=== PATIENT | female | born 1960 | race Caucasian/White ===

== ENCOUNTER 2021-01-27 12:38 | Emergency (ER) | payer BC ==
[2021-01-27] MEDS ORDERED: Sodium Chloride 0.9% 10 ML Syringe FLUSH PRN (14:00)
--- NOTE | 2021-01-27 14:52 | CT ---
Head CT Technique: Multiple axial sections through the brain were obtained. Intravenous contrast was not utilized. Reconstructed coronal and sagittal images were obtained. Comparison: No prior intracranial imaging is available. Findings: There is an old low density noted within the left upper parietal region with evidence of previous craniotomy. Some calcifications are seen within this area. Ventricles along with basal cisterns and sulci over the convexities are mildly prominent. No other abnormal parenchymal densities are seen. No evidence of intracranial hemorrhage. No midline shift or mass-effect is appreciated. Bone window settings were reviewed. Visualized mastoid and paranasal sinuses show nothing acute. Minimal atherosclerotic change within the carotid siphon is seen. No acute calvarial abnormality is appreciated. Impression: 1. Old craniotomy within the upper left side with underlying low density within the adjacent brain showing calcification. These findings are most likely old. 2. Mild generalized atrophy. 3. Nothing acute is appreciated on noncontrast head CT exam. Diagnostic code #2
--- NOTE | 2021-01-27 14:58 | EDM.PDOC ---
ED HPI GENERAL MEDICAL PROBLEM - General Chief Complaint: General Stated Complaint: DIZZINESS Time Seen by Provider: 01/27/21 12:58 Source of Information: Reports: Patient History Limitations: Reports: No Limitations - History of Present Illness INITIAL COMMENTS - FREE TEXT/NARRATIVE: 60-year-old female presents to the emergency department today with complaints of a 3-day history of new onset dizziness, nausea, intermittent diaphoresis, and intermittent headache. Patient states this started about 3 days ago. She states that the dizziness comes and goes when she will be sitting in a chair or laying flat in the bed. Of note the patient does have a history of brain tumor which was removed in 1988. She states that when the dizziness hits she becomes nauseated and sweaty. She also states that when this occurs she gets chest pressure and midsternal burning. She denies any recent fever, chills, cough or shortness of breath. She denies any history of Covid. She is tachycardic in the 1 teens to 120s however she states that she is always slightly tachycardic in the low 100s. - Related Data Allergies Allergy/AdvReac Type Severity Reaction Status Date / Time phenytoin sodium Allergy Rash Verified 01/27/21 12:53 [From Dilantin] phenytoin sodium extended Allergy Rash Verified 01/27/21 12:53 [From Dilantin] Home Meds: Home Meds Meclizine [Antivert] 12.5 mg PO BID #20 tab 01/27/21 [Rx] predniSONE [Prednisone] 20 mg PO DAILY #5 tablet 01/27/21 [Rx] Past Medical History HEENT History: Reports: Impaired Vision Neurological History: Reports: Seizure, Other (See Below) Other Neuro History: brain tumor removed in 1988 Social & Family History - Tobacco Use Tobacco Use Status *Q: Never Tobacco User - Alcohol Use Days Per Week of Alcohol Use: 7 Number of Drinks Per Day: 2 Total Drinks Per Week: 14 - Recreational Drug Use Recreational Drug Use: No ED ROS GENERAL - Review of Systems Review Of Systems: See Below Constitutional: Reports: Diaphoresis (With dizzy spells). Denies: Fever, Chills HEENT: Reports: No Symptoms Respiratory: Reports: No Symptoms. Denies: Shortness of Breath, Cough Cardiovascular: Reports: Chest Pain (Burning midsternal chest pain). Denies: Dyspnea on Exertion, Lightheadedness, Palpitations, Syncope Endocrine: Reports: No Symptoms GI/Abdominal: Reports: Nausea. Denies: Abdominal Pain, Constipation, Diarrhea, Vomiting : Reports: No Symptoms Musculoskeletal: Reports: No Symptoms Skin: Reports: No Symptoms Neurological: Reports: Dizziness, Headache (Occasional intermittent). Denies: Seizure, Weakness Psychiatric: Reports: No Symptoms Hematologic/Lymphatic: Reports: No Symptoms Immunologic: Reports: No Symptoms ED EXAM, GENERAL - Physical Exam Exam: See Below Exam Limited By: No Limitations General Appearance: Alert, WD/WN, No Apparent Distress Eye Exam: Bilateral Eye: PERRL Ears: Normal External Exam, Hearing Grossly Normal Nose: Normal Inspection, Normal Mucosa Throat/Mouth: Normal Inspection, Normal Lips, Normal Voice, No Airway Compromise Head: Atraumatic, Normocephalic Neck: Normal Inspection, Supple, Non-Tender, Full Range of Motion Respiratory/Chest: No Respiratory Distress, Lungs Clear, Normal Breath Sounds, No Accessory Muscle Use, Chest Non-Tender Cardiovascular: Normal Peripheral Pulses, No Edema, No Murmur, Tachycardia Peripheral Pulses: 2+: Radial (L), Radial (R) GI/Abdominal: Normal Bowel Sounds, Soft, Non-Tender, No Distention (Female) Exam: Normal External Exam Rectal (Female) Exam: Deferred Back Exam: Normal Inspection, Full Range of Motion Extremities: Normal Inspection, Normal Range of Motion, Non-Tender, No Pedal Edema, Normal Capillary Refill Neurological: Alert, Oriented, Normal Cognition, Normal Reflexes Psychiatric: Normal Affect, Normal Mood Skin Exam: Warm, Dry, Intact, Normal Color, No Rash Lymphatic: No Adenopathy #1 Interpretation EKG Date: 01/27/21 Time: 13:31 Rhythm: NSR Rate (Beats/Min): 109 QRS: LBBB ST-T: Normal QT: Normal Comparison: NA - No Prior EKG EKG Interpretation Comments: Per Dr. Vasquez interpretation: Sinus tachycardia at 109, left bundle branch block, Q waves in the inferior leads, abnormal EKG. Course - Vital Signs Text/Narrative:: The 60-year-old female with complaints of 3-day history of dizziness, nausea and diaphoresis. She also notes that she has occasional chest pressure/burning midsternally. Denies any history of fever, chills or cough. She does have a history of brain tumor which was removed in 1988. She states that after that she did have 1 seizure and was on seizure medication however weaned herself off of those about a year later. She denies any syncopal episodes or cough or shortness of breath. She states that intermittently she will feel dizzy while sitting in a chair or laying in bed however not when she is up ambulating or standing from sitting. She states when this occurs she feels nauseated and diaphoretic. She does not have a history of vertigo however she states that her mom had a history of that. She has no significant medical history other than the brain tumor and she does not take any prescription medications. I have ordered a head CT, chest x-ray and labs on this patient. I have also ordered for the patient to have a saline lock placed. Last Recorded V/S: Last Vital Signs Temp 96.2 F L 01/27/21 12:47 Pulse 120 H 01/27/21 12:47 Resp 18 01/27/21 12:47 BP 168/108 H 01/27/21 12:47 Pulse Ox 97 01/27/21 12:47 - Orders/Labs/Meds Orders: Active Orders 24 hr Category Date Time Status EKG 12 Lead [EKG Documentation Completion] [RC] DAILY Care 01/27/21 13:27 Active CORONAVIRUS COVID-19 PCR PHL Stat Lab 01/27/21 15:02 Ordered Sodium Chloride 0.9% [Saline Flush] Med 01/27/21 14:00 Active 10 ml FLUSH ASDIRECTED PRN Saline Lock Insert [OM.PC] Stat Oth 01/27/21 14:00 Ordered Medication Orders Sodium Chloride (Saline Flush) 10 ml FLUSH ASDIRECTED PRN PRN Reason: Keep Vein Open Last Admin: 01/27/21 14:04 Dose: 10 ml Documented by: KARISSA Labs: Laboratory Tests 01/27/21 01/27/21 01/27/21 Range/Units 12:55 12:55 12:55 WBC 7.07 (3.98-10.04) K/mm3 RBC 4.64 (3.98-5.22) M/mm3 Hgb 14.7 D (11.2-15.7) gm/dl Hct 45.3 H (34.1-44.9) % MCV 97.6 H D (79.4-94.8) fl MCH 31.7 (25.6-32.2) pg MCHC 32.5 (32.2-35.5) g/dl RDW Std Deviation 43.8 (36.4-46.3) fL Plt Count 336 (182-369) K/mm3 MPV 9.5 (9.4-12.3) fl Neut % (Auto) 56.2 (34.0-71.1) % Lymph % (Auto) 32.2 (19.3-51.7) % Ada % (Auto) 7.4 (4.7-12.5) % Eos % (Auto) 3.7 (0.7-5.8) Baso % (Auto) 0.4 (0.1-1.2) % Neut # (Auto) 3.97 (1.56-6.13) K/mm3 Lymph # (Auto) 2.28 (1.18-3.74) K/mm3 Ada # (Auto) 0.52 H (0.24-0.36) K/mm3 Eos # (Auto) 0.26 (0.04-0.36) K/mm3 Baso # (Auto) 0.03 (0.01-0.08) K/mm3 Sodium 143 (136-145) mEq/L Potassium 3.8 (3.5-5.1) mEq/L Chloride 103 (98-107) mEq/L Carbon Dioxide 27 (21-32) mEq/L Anion Gap 16.8 H (5-15) BUN 20 H (7-18) mg/dL Creatinine 1.0 (0.55-1.02) mg/dL Est Cr Clr Drug Dosing 52.95 mL/min Estimated GFR (MDRD) 57 (>60) mL/min BUN/Creatinine Ratio 20.0 H (14-18) Glucose 147 H (74-106) mg/dL Calcium 10.0 (8.5-10.1) mg/dL Magnesium 1.9 (1.8-2.4) mg/dl Total Bilirubin 0.6 (0.2-1.0) mg/dL AST 27 (15-37) U/L ALT 49 (14-59) U/L Alkaline Phosphatase 83 (46-116) U/L Troponin I < 0.017 (0.00-0.056) ng/mL Total Protein 8.6 H (6.4-8.2) g/dl Albumin 4.5 (3.4-5.0) g/dl Globulin 4.1 gm/dL Albumin/Globulin Ratio 1.1 (1-2) TSH 3rd Generation 2.678 (0.358-3.74) uIU/mL Urine Color (Yellow) Urine Appearance (Clear) Urine pH (5.0-8.0) Ur Specific [place] (1.005-1.030) Urine Protein (Negative) Urine Glucose (UA) (Negative) Urine Ketones (Negative) Urine Occult Blood (Negative) Urine Nitrite (Negative) Urine Bilirubin (Negative) Urine Urobilinogen (0.2-1.0) Ur Leukocyte Esterase (Negative) Urine RBC (0-5) /hpf Urine WBC (0-5) /hpf Ur Squamous Epith Cells (0-5) /hpf Urine Bacteria (FEW) /hpf Urine Mucus (FEW) /hpf 01/27/21 Range/Units 13:20 WBC (3.98-10.04) K/mm3 RBC (3.98-5.22) M/mm3 Hgb (11.2-15.7) gm/dl Hct (34.1-44.9) % MCV (79.4-94.8) fl MCH (25.6-32.2) pg MCHC (32.2-35.5) g/dl RDW Std Deviation (36.4-46.3) fL Plt Count (182-369) K/mm3 MPV (9.4-12.3) fl Neut % (Auto) (34.0-71.1) % Lymph % (Auto) (19.3-51.7) % Ada % (Auto) (4.7-12.5) % Eos % (Auto) (0.7-5.8) Baso % (Auto) (0.1-1.2) % Neut # (Auto) (1.56-6.13) K/mm3 Lymph # (Auto) (1.18-3.74) K/mm3 Ada # (Auto) (0.24-0.36) K/mm3 Eos # (Auto) (0.04-0.36) K/mm3 Baso # (Auto) (0.01-0.08) K/mm3 Sodium (136-145) mEq/L Potassium (3.5-5.1) mEq/L Chloride (98-107) mEq/L Carbon Dioxide (21-32) mEq/L Anion Gap (5-15) BUN (7-18) mg/dL Creatinine (0.55-1.02) mg/dL Est Cr Clr Drug Dosing mL/min Estimated GFR (MDRD) (>60) mL/min BUN/Creatinine Ratio (14-18) Glucose (74-106) mg/dL Calcium (8.5-10.1) mg/dL Magnesium (1.8-2.4) mg/dl Total Bilirubin (0.2-1.0) mg/dL AST (15-37) U/L ALT (14-59) U/L Alkaline Phosphatase (46-116) U/L Troponin I (0.00-0.056) ng/mL Total Protein (6.4-8.2) g/dl Albumin (3.4-5.0) g/dl Globulin gm/dL Albumin/Globulin Ratio (1-2) TSH 3rd Generation (0.358-3.74) uIU/mL Urine Color Yellow (Yellow) Urine Appearance Clear (Clear) Urine pH 5.5 (5.0-8.0) Ur Specific [place] > or = 1.030 (1.005-1.030) Urine Protein Negative (Negative) Urine Glucose (UA) Negative (Negative) Urine Ketones Negative (Negative) Urine Occult Blood Trace-intact H (Negative) Urine Nitrite Negative (Negative) Urine Bilirubin Negative (Negative) Urine Urobilinogen 0.2 (0.2-1.0) Ur Leukocyte Esterase Negative (Negative) Urine RBC 5-10 H (0-5) /hpf Urine WBC 0-5 (0-5) /hpf Ur Squamous Epith Cells 0-5 (0-5) /hpf Urine Bacteria Few (FEW) /hpf Urine Mucus Few (FEW) /hpf Meds: Medications Generic Name Dose Route Start Last Admin Trade Name Freq PRN Reason Stop Dose Admin Sodium Chloride 10 ml 01/27/21 14:00 01/27/21 14:04 Saline Flush FLUSH 10 ml ASDIRECTED PRN Administration Keep Vein Open - Re-Assessments/Exams Free Text/Narrative Re-Assessment/Exam: 01/27/21 14:58 Labs reveal a WBC of 7.07, hemoglobin 14.7, hematocrit 45.3, chemistry reveals sodium of 143, potassium 3.8, carbon dioxide 27, anion gap 16.8, BUN 20, creatinine 1.0, glucose 147, troponin less than 0.017, TSH 2.678 Urinalysis reveals trace of intact occult blood, urine RBCs 5-10 01/27/21 15:03 I have ordered a Covid test for send out to the state. 01/27/21 15:05 Radiologist impression portable view of the chest: 1. Nothing acute is appreciated on portable chest x-ray. 01/27/21 15:42 Examination of the patient's ears reveals fluid behind the eardrum however no erythema or bulging of the tympanic membrane. Patient will be discharged to home with prescription for prednisone 20 mg daily x5 days and meclizine 12.5 mg twice daily x5 days. Patient may also try Sudafed per label recommendations as she does have fluid noted behind the eardrum bilaterally. Recommend that she follow-up early next week with her primary care physician. Patient will also need to isolate until her Covid results have come back. 01/27/21 15:48 Reviewed the case with Dr. Vasquez and he agrees with this plan. Departure - Departure Time of Disposition: 15:49 Disposition: Home, Self-Care 01 Condition: Fair Clinical Impression: Vertigo - Discharge Information Prescriptions: Meclizine [Antivert] 12.5 mg PO BID #20 tab predniSONE [Prednisone] 20 mg PO DAILY #5 tablet Instructions: Vertigo, [id number] Referrals: PCP,None [Primary Care Provider] - Forms: ED Department Discharge Additional Instructions: You were seen in the emergency department today with complaints of intermittent dizziness, nausea, and headache for the past 3 days.. You also stated that you occasionally have chest pressure and discomfort and this started today. Lab work was completed today and this did not show anything cardiac related, you are not anemic, your thyroid level was normal, however you were just slightly dehydrated. An EKG was completed as well as a chest x-ray. CT of the head was unremarkable as well. You likely have vertigo. I will send a prescription for prednisone 20 mg daily and you will need to take this for 5 days. I will also send a prescription for meclizine 12.5 mg that we will may need to taken twice daily for 5 days. I also noted that you had some fluid behind your ears and you can take Sudafed per the label recommendations for this. Strongly recommend that you follow-up with your primary care provider early next week in the clinic to reevaluate your symptoms. We also did test you for Covid while you were in the emergency department and you will need to isolate until you hear back from the [facility] regarding these results. Should your condition worsen or change, having increased dizziness or chest pain strongly recommend that you return to the emergency department. Also recommend that you increase your intake of water as you were slightly dehydrated today in the emergency department. Sepsis Event Note (ED) - Evaluation Sepsis Screening Result: No Definite Risk - Focused Exam Vital Signs: Vital Signs Temp Pulse Resp BP Pulse Ox 01/27/21 12:47 96.2 F L 120 H 18 168/108 H 97 - My Orders Last 24 Hours: My Active Orders 01/27/21 13:27 EKG 12 Lead [EKG Documentation Completion] [RC] DAILY 01/27/21 14:00 Sodium Chloride 0.9% [Saline Flush] 10 ml FLUSH ASDIRECTED PRN Saline Lock Insert [OM.PC] Stat 01/27/21 15:02 CORONAVIRUS COVID-19 PCR PHL Stat - Assessment/Plan Last 24 Hours: My Active Orders 01/27/21 13:27 EKG 12 Lead [EKG Documentation Completion] [RC] DAILY 01/27/21 14:00 Sodium Chloride 0.9% [Saline Flush] 10 ml FLUSH ASDIRECTED PRN Saline Lock Insert [OM.PC] Stat 01/27/21 15:02 CORONAVIRUS COVID-19 PCR PHL Stat
--- NOTE | 2021-01-27 15:02 | CR ---
Chest: Portable view of the chest was obtained. Comparison: Prior chest x-ray of 10/20/14. Findings: Heart size and mediastinum are normal for portable technique. Lungs are clear with no acute parenchymal change. No acute osseous abnormality is appreciated. Impression: 1. Nothing acute is appreciated on portable chest x-ray. Diagnostic code #1
== END 2021-01-27 16:15 | disposition home or self-care (01) ==
LOC: JD.ED 12:38
DX: R42 Dizziness and giddiness (principal); Z88.8 Allergy status to other drugs, medicaments and biological substances; Z20.822 Contact with and (suspected) exposure to COVID-19
CPT/HCPCS: 36415; 70450; 70450-26; 71045; 71045-26; 80053; 81001; 83735; 84443; 84484; 85025; 93005; 93010; 99283; 99284-25; U0002

== ENCOUNTER 2021-10-28 13:57 | Emergency (ER) | payer BC ==
[2021-10-28] MEDS ORDERED: Sodium Chloride 0.9% 10 ML Syringe FLUSH PRN (14:23)
--- NOTE | 2021-10-28 16:04 | EDM.PDOC ---
ED HPI GENERAL MEDICAL PROBLEM - General Chief Complaint: Respiratory Problem Stated Complaint: SENT BY [facility] Time Seen by Provider: 10/28/21 14:12 Source of Information: Reports: Patient, Police History Limitations: Reports: No Limitations - History of Present Illness INITIAL COMMENTS - FREE TEXT/NARRATIVE: The patient presents from the [facility] for shortness of breath and chest pressure for 2 weeks. The patient just got back from [place] this week. She was checked for COVID on and it was negative. She had labs, CXR, and an EKG done. Her EKG shows a sinus tachycardia and LBBB. Her CXR shows mild enlargement of the cardiac silhouette with slightly increased interstitial prominence in the lung bases suggestive of edema. No focal pulmonary c onsolidation, pleural effusion or pneumothorax. The patient was sent over for possible new onset CHF. She has no fever, chills or cough. She has no swelling in her legs or pain in her legs. She did have a 36 hour travel time with flights and car rides. She has no history of DVT or PE. Onset: Gradual Duration: Week(s): (2) Location: Reports: Chest Quality: Reports: Pressure Severity: Mild Improves with: Reports: None Worsens with: Reports: None Associated Symptoms: Reports: Chest Pain, Shortness of Breath. Denies: Cough, Fever/Chills, Headaches, Weakness Chest Pain Score (Numeric/FACES): 2 - Related Data Allergies Allergy/AdvReac Type Severity Reaction Status Date / Time phenytoin sodium Allergy Rash Verified 10/28/21 14:13 [From Dilantin] phenytoin sodium extended Allergy Rash Verified 10/28/21 14:13 [From Dilantin] Home Meds: Home Meds Albuterol [Proventil Neb Soln] 1 dose INH ASDIRECTED PRN 10/28/21 [History] Furosemide [Lasix] 20 mg PO DAILY #30 tab 10/28/21 [Rx] Past Medical History HEENT History: Reports: Impaired Vision Respiratory History: Reports: Asthma LINE LEAD History: Reports: Neurological History: Reports: Seizure, Other (See Below) Other Neuro History: brain tumor removed in 1988 Social & Family History - Tobacco Use Tobacco Use Status *Q: Never Tobacco User Second Hand Smoke Exposure: No - Caffeine Use Caffeine Use: Reports: None - Alcohol Use Days Per Week of Alcohol Use: 7 Number of Drinks Per Day: 2 Total Drinks Per Week: 14 - Recreational Drug Use Recreational Drug Use: No ED ROS GENERAL - Review of Systems Review Of Systems: See Below Constitutional: Reports: Weakness. Denies: Fever, Chills HEENT: Reports: No Symptoms Respiratory: Reports: Shortness of Breath Cardiovascular: Reports: Chest Pain Endocrine: Reports: No Symptoms GI/Abdominal: Reports: No Symptoms : Reports: No Symptoms Musculoskeletal: Reports: No Symptoms Skin: Reports: No Symptoms Neurological: Reports: No Symptoms ED EXAM, GENERAL - Physical Exam Exam: See Below Exam Limited By: No Limitations General Appearance: Alert, No Apparent Distress Ears: Normal External Exam Nose: Normal Inspection Head: Atraumatic, Normocephalic Neck: Normal Inspection Respiratory/Chest: No Respiratory Distress, Lungs Clear, Normal Breath Sounds Cardiovascular: Regular Rate, Rhythm, No Edema, Systolic Murmur GI/Abdominal: Soft, Non-Tender, No Organomegaly Back Exam: Normal Inspection Extremities: Normal Inspection Neurological: Alert, Oriented, No Motor/Sensory Deficits #1 Interpretation EKG Date: 10/28/21 Time: 14:08 Rhythm: Other (Sinus tachycardia) Rate (Beats/Min): 127 [place]: LAD-Left [place] Deviation P-Wave: Present QRS: LBBB ST-T: Normal QT: Normal Comparison: No Change Course - Vital Signs Last Recorded V/S: Last Vital Signs Temp 96.9 F 10/28/21 14:12 Pulse 123 H 10/28/21 14:12 Resp 18 10/28/21 14:12 BP 137/86 10/28/21 14:12 Pulse Ox 99 10/28/21 14:12 - Orders/Labs/Meds Orders: Active Orders 24 hr Category Date Time Status Cardiac Monitoring [RC] . DIRECTED Care 10/28/21 14:23 Active Peripheral IV Care [RC] . DIRECTED Care 10/28/21 14:23 Active Ang Chest [CT] Stat Exams 10/28/21 14:24 Taken Sodium Chloride 0.9% [Saline Flush] Med 10/28/21 14:23 Active 10 ml FLUSH ASDIRECTED PRN Peripheral IV Insertion Adult [OM.PC] Stat Oth 10/28/21 14:23 Ordered Medication Orders Sodium Chloride (Sodium Chloride 0.9% 10 Ml Syringe) 10 ml FLUSH ASDIRECTED PRN PRN Reason: Keep Vein Open Last Admin: 10/28/21 14:56 Dose: 10 ml Documented by: CIERRA Labs: Laboratory Tests 10/28/21 10/28/21 10/28/21 Range/Units 14:30 14:30 14:30 D-Dimer, Quantitative 0.71 H (0.19-0.50) mg/L Troponin I < 0.017 (0.00-0.056) ng/mL NT-Pro-B Natriuret Pep 3315 H (0-125) pg/mL TSH 3rd Generation 4.612 H (0.358-3.74) uIU/mL SARS-CoV-2 RNA (JESSE) (NEGATIVE) 10/28/21 Range/Units 15:30 D-Dimer, Quantitative (0.19-0.50) mg/L Troponin I (0.00-0.056) ng/mL NT-Pro-B Natriuret Pep (0-125) pg/mL TSH 3rd Generation (0.358-3.74) uIU/mL SARS-CoV-2 RNA (JESSE) Negative (NEGATIVE) Meds: Medications Generic Name Dose Route Start Last Admin Trade Name Freq PRN Reason Stop Dose Admin Sodium Chloride 10 ml 10/28/21 14:23 10/28/21 14:56 Sodium Chloride 0.9% 10 Ml Syringe FLUSH 10 ml ASDIRECTED PRN Administration Keep Vein Open - Re-Assessments/Exams Free Text/Narrative Re-Assessment/Exam: 10/28/21 16:26 I ordered an IV saline lock, EKG, CT angio and labs. Her EKG shows a sinus tachycardia and LBBB with no changes from prior EKG. Her CBC looks good. Her glucose was elevated at 121. Her AST is elevated at 86. Her ALT is elevated at 161. Her 10/28/21 16:28 Her D-dimer is elevated at 0.71. Her troponin is negative. Her BNP is elevated at 3,315. Her TSH is elevated at 4.512. I am waiting for the CT angio of her chest. 10/28/21 17:[address] angio of her chest shows no evidence of pulmonary embolus. Mild bilateral pulmonary opacities could be due to edema or infection. Cardiac enlargement with moderate left ventricular enlargement. It appears she does have some new onset CHF. I did called [facility] and talked with the photostat operator helper Dr Hazel and he recommended putting her on lasix 20mg daily and an outpatient echocardiogram. I will have her follow up with Dr Peralta. Departure - Departure Time of Disposition: 17:30 Disposition: Admitted As Inpatient 66 Condition: Good Clinical Impression: Heart murmur CHF (congestive heart failure) Qualifiers: Heart failure type: unspecified Heart failure chronicity: acute Qualified Code(s): I50.9 - Heart failure, unspecified - Discharge Information *PRESCRIPTION DRUG MONITORING PROGRAM REVIEWED*: Not Applicable *COPY OF PRESCRIPTION DRUG MONITORING REPORT IN PATIENT PENNIE: Not Applicable Prescriptions: Furosemide [Lasix] 20 mg PO DAILY #30 tab Referrals: Nehal Uriostegui MD [Primary Care Provider] - Fabian-Tena Hairston MD [Physician] - 1 Week Forms: ED Department Discharge Additional Instructions: Take the lasix daily. Follow up with Dr Peralta within a week. Someone from our radiology department will call you for the echocardiogram. Please return if you are worse. Sepsis Event Note (ED) - Focused Exam Vital Signs: Vital Signs Temp Pulse Resp BP Pulse Ox 10/28/21 14:12 96.9 F 123 H 18 137/86 99 - My Orders Last 24 Hours: My Active Orders 10/28/21 14:23 Cardiac Monitoring [RC] . DIRECTED Peripheral IV Care [RC] . DIRECTED Sodium Chloride 0.9% [Saline Flush] 10 ml FLUSH ASDIRECTED PRN Peripheral IV Insertion Adult [OM.PC] Stat 10/28/21 14:24 Ang Chest [CT] Stat - Assessment/Plan Last 24 Hours: My Active Orders 10/28/21 14:23 Cardiac Monitoring [RC] . DIRECTED Peripheral IV Care [RC] . DIRECTED Sodium Chloride 0.9% [Saline Flush] 10 ml FLUSH ASDIRECTED PRN Peripheral IV Insertion Adult [OM.PC] Stat 10/28/21 14:24 Ang Chest [CT] Stat
--- NOTE | 2021-10-29 08:15 | CT ---
Chest CT Technique: Multiple axial sections were obtained through the chest. Intravenous contrast was utilized. Study has been performed as a pulmonary angiogram protocol. Comparison: No prior chest CT is available, prior chest x-ray of 01/27/21 is available. Findings: Pulmonary arteries are well opacified. No filling defects are seen to indicate pulmonary embolism. Thoracic aorta shows no aneurysm. Mediastinum shows no adenopathy. No axillary adenopathy is seen. Heart is enlarged with prominent left ventricular cavity. Visualized upper abdominal structures show no discrete abnormality. Slight areas of atelectasis are noted within the lingula and left lower lung. Patchy areas of increased density are noted within the lungs which are most likely due to mild pulmonary edema given the left ventricular enlargement. Infection is felt to be less likely. Lungs otherwise are felt to be clear. Bone window settings were reviewed. There is slight endplate spurring seen within the thoracic spine. No acute osseous abnormality is appreciated. Impression: 1. Heart is mildly enlarged with left ventricular enlargement. 2. Patchy increased density within both lungs suspicious for mild pulmonary edema given the ventricular enlargement. 3. No findings of pulmonary embolism. 4. Mild areas of atelectasis within the lingula and left lower lung. 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
== END 2021-10-28 17:45 | disposition home or self-care (01) ==
LOC: JD.ED 13:57
DX: I11.0 Hypertensive heart disease with heart failure (principal); I50.9 Heart failure, unspecified; J45.909 Unspecified asthma, uncomplicated; I44.7 Left bundle-branch block, unspecified; R00.0 Tachycardia, unspecified; R01.1 Cardiac murmur, unspecified; Z88.8 Allergy status to other drugs, medicaments and biological substances; Z20.822 Contact with and (suspected) exposure to COVID-19
CPT/HCPCS: 36415; 71275; 71275-26; 83880; 84443; 84484; 85379; 93005; 99285-25; U0002

== ENCOUNTER 2021-10-29 13:23 | Emergency (ER) | payer BC ==
[2021-10-29] MEDS ORDERED: Aspirin 81 MG Tab.Chew PO ONE (13:38)
[2021-10-29] MEDS ORDERED: Sodium Chloride 0.9% 10 ML Syringe FLUSH PRN (13:38)
[2021-10-29] MEDS ORDERED: Nitroglycerin/D5W 25 MG/250 ML BOTTLE IV SCH (13:45)
--- NOTE | 2021-10-29 14:10 | CR ---
Chest: Frontal view of the chest was obtained. Comparison: Prior chest CT study of 10/28/21 is available. Chest x-ray of 01/27/21 is also available. Heart is enlarged. This is more prominent than on prior chest x-ray. Pulmonary vessels are minimally congested. Lungs otherwise are clear. Bony structures show nothing acute. Impression: 1. Cardiomegaly. Minimal pulmonary vascular congestion is also felt to be present. 2. Frontal chest x-ray is otherwise unremarkable. Diagnostic code #3
--- NOTE | 2021-10-29 16:22 | EDM.PDOC ---
ED HPI GENERAL MEDICAL PROBLEM - General Chief Complaint: Cardiovascular Problem Stated Complaint: RAPID HEART RATE Time Seen by Provider: 10/29/21 13:34 Source of Information: Reports: Patient History Limitations: Reports: No Limitations - History of Present Illness INITIAL COMMENTS - FREE TEXT/NARRATIVE: The patient presents with chest pain and shortness of breath. This started about a half hour before arrival. Her heart rate was also high. She did not feel well with some nausea. She was seen here yesterday and diagnosed with new onset CHF. She did take her first lasix today. It did start a few hours after that. She is anxious. Her heart rate is in the 120s. She was in [place] for vacation and started to not feel well. She has been short of breath and having some chest pain. She was seen at the walk in clinic and sent over here. Her CT angio did not show any PE. She did have some CHF and enlarged heart. She has an old LBBB on EKG. I talked with cardiology and they wanted her on lasix and an echo done next week. She has no fever, chills, cough, abdominal pain or diarrhea. She was COVID negative on and yesterday. Onset: Sudden Duration: Hour(s): (0.5) Location: Reports: Chest Quality: Reports: Pressure Severity: Mild Improves with: Reports: None Worsens with: Reports: None Associated Symptoms: Reports: Chest Pain, Nausea/Vomiting, Shortness of Breath. Denies: Cough, Fever/Chills, Headaches Chest Pain Score (Numeric/FACES): 2 - Related Data Allergies Allergy/AdvReac Type Severity Reaction Status Date / Time phenytoin sodium Allergy Rash Verified 10/29/21 13:39 [From Dilantin] phenytoin sodium extended Allergy Rash Verified 10/29/21 13:39 [From Dilantin] Home Meds: Home Meds Albuterol [Proventil Neb Soln] 1 dose INH ASDIRECTED PRN 10/28/21 [History] Furosemide [Lasix] 20 mg PO DAILY #30 tab 10/28/21 [Rx] ALPRAZolam [Xanax] 0.25 mg PO QID PRN #10 tablet 10/29/21 [Rx] Past Medical History HEENT History: Reports: Impaired Vision Respiratory History: Reports: Asthma 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 Denies: Abdominal Pain, Vomiting : Reports: No Symptoms Musculoskeletal: Reports: No Symptoms ED EXAM, GENERAL - Physical Exam Exam: See Below Exam Limited By: No Limitations General Appearance: Alert, No Apparent Distress Ears: Normal External Exam Nose: Normal Inspection Head: Atraumatic, Normocephalic Neck: Normal Inspection Respiratory/Chest: No Respiratory Distress, Lungs Clear, Normal Breath Sounds Cardiovascular: Regular Rate, Rhythm, No Edema, No Murmur GI/Abdominal: Soft, Non-Tender, No Organomegaly, No Mass Back Exam: Normal Inspection Extremities: Normal Inspection #1 Interpretation EKG Date: 10/29/21 Time: 13:32 Rhythm: Other (sinus tachycardia) [place]: LAD-Left [place] Deviation P-Wave: Present QRS: LBBB ST-T: Normal QT: Normal Course - Vital Signs Last Recorded V/S: Last Vital Signs Temp Pulse Resp BP Pulse Ox 97 10/29/21 13:43 - Orders/Labs/Meds Orders: Active Orders 24 hr Category Date Time Status Cardiac Monitoring [RC] . DIRECTED Care 10/29/21 13:38 Active Oxygen Therapy [RC] PRN Care 10/29/21 13:39 Active Peripheral IV Care [RC] . DIRECTED Care 10/29/21 13:39 Active TROPONIN I [CHEM] Stat Lab 10/29/21 16:00 Received Nitroglycerin/D5W [Nitroglycerin 25 MG/D5W 250 ML] Med 10/29/21 13:45 Active 25 mg in 250 ml IV TITRATE Sodium Chloride 0.9% [Saline Flush] Med 10/29/21 13:38 Active 10 ml FLUSH ASDIRECTED PRN Peripheral IV Insertion Adult [OM.PC] Stat Oth 10/29/21 13:38 Ordered Medication Orders Nitroglycerin/Dextrose (Nitroglycerin 25 Mg/D5w 250 Ml) 25 mg in 250 mls @ 3 mls/hr IV TITRATE ZANE; Protocol Last Admin: 10/29/21 14:01 Dose: 3 mls/hr, 3 mls/hr Documented by: ISADORA Sodium Chloride (Sodium Chloride 0.9% 10 Ml Syringe) 10 ml FLUSH ASDIRECTED PRN PRN Reason: Keep Vein Open Last Admin: 10/29/21 14:01 Dose: 10 ml Documented by: ISADORA Labs: Laboratory Tests 10/29/21 10/29/21 10/29/21 Range/Units 13:45 13:45 13:45 WBC 6.53 (3.98-10.04) K/mm3 RBC 4.58 (3.98-5.22) M/mm3 Hgb 14.8 (11.2-15.7) gm/dl Hct 45.3 H (34.1-44.9) % MCV 98.9 H (79.4-94.8) fl MCH 32.3 H (25.6-32.2) pg MCHC 32.7 (32.2-35.5) g/dl RDW Std Deviation 46.2 (36.4-46.3) fL Plt Count 296 (182-369) K/mm3 MPV 10.0 (9.4-12.3) fl Neut % (Auto) 56.2 (34.0-71.1) % Lymph % (Auto) 33.1 (19.3-51.7) % [place] % (Auto) 7.0 (4.7-12.5) % Eos % (Auto) 2.9 (0.7-5.8) Baso % (Auto) 0.6 (0.1-1.2) % Neut # (Auto) 3.67 (1.56-6.13) K/mm3 Lymph # (Auto) 2.16 (1.18-3.74) K/mm3 [place] # (Auto) 0.46 H (0.24-0.36) K/mm3 Eos # (Auto) 0.19 (0.04-0.36) K/mm3 Baso # (Auto) 0.04 (0.01-0.08) K/mm3 PT (9.7-12.0) SECONDS INR APTT (21.7-31.4) SECONDS Sodium 140 (136-145) mEq/L Potassium 3.5 (3.5-5.1) mEq/L Chloride 103 (98-107) mEq/L Carbon Dioxide 26 (21-32) mEq/L Anion Gap 14.5 (5-15) BUN 16 (7-18) mg/dL Creatinine 1.2 H (0.55-1.02) mg/dL Est Cr Clr Drug Dosing 43.59 mL/min Estimated GFR (MDRD) 46 (>60) mL/min BUN/Creatinine Ratio 13.3 L (14-18) Glucose 181 H (70-99) mg/dL Calcium 9.6 (8.5-10.1) mg/dL Total Bilirubin 0.8 (0.2-1.0) mg/dL AST 58 H (15-37) U/L ALT 150 H (14-59) U/L Alkaline Phosphatase 78 (46-116) U/L Troponin I < 0.017 (0.00-0.056) ng/mL NT-Pro-B Natriuret Pep 2836 H (0-125) pg/mL Total Protein 7.4 (6.4-8.2) g/dl Albumin 3.9 (3.4-5.0) g/dl Globulin 3.5 gm/dL Albumin/Globulin Ratio 1.1 (1-2) 10/29/21 Range/Units 14:03 WBC (3.98-10.04) K/mm3 RBC (3.98-5.22) M/mm3 Hgb (11.2-15.7) gm/dl Hct (34.1-44.9) % MCV (79.4-94.8) fl MCH (25.6-32.2) pg MCHC (32.2-35.5) g/dl RDW Std Deviation (36.4-46.3) fL Plt Count (182-369) K/mm3 MPV (9.4-12.3) fl Neut % (Auto) (34.0-71.1) % Lymph % (Auto) (19.3-51.7) % [place] % (Auto) (4.7-12.5) % Eos % (Auto) (0.7-5.8) Baso % (Auto) (0.1-1.2) % Neut # (Auto) (1.56-6.13) K/mm3 Lymph # (Auto) (1.18-3.74) K/mm3 [place] # (Auto) (0.24-0.36) K/mm3 Eos # (Auto) (0.04-0.36) K/mm3 Baso # (Auto) (0.01-0.08) K/mm3 PT 11.1 (9.7-12.0) SECONDS INR 1.00 APTT 25.5 (21.7-31.4) SECONDS Sodium (136-145) mEq/L Potassium (3.5-5.1) mEq/L Chloride (98-107) mEq/L Carbon Dioxide (21-32) mEq/L Anion Gap (5-15) BUN (7-18) mg/dL Creatinine (0.55-1.02) mg/dL Est Cr Clr Drug Dosing mL/min Estimated GFR (MDRD) (>60) mL/min BUN/Creatinine Ratio (14-18) Glucose (70-99) mg/dL Calcium (8.5-10.1) mg/dL Total Bilirubin (0.2-1.0) mg/dL AST (15-37) U/L ALT (14-59) U/L Alkaline Phosphatase (46-116) U/L Troponin I (0.00-0.056) ng/mL NT-Pro-B Natriuret Pep (0-125) pg/mL Total Protein (6.4-8.2) g/dl Albumin (3.4-5.0) g/dl Globulin gm/dL Albumin/Globulin Ratio (1-2) Meds: Medications Generic Name Dose Route Start Last Admin Trade Name Freq PRN Reason Stop Dose Admin Nitroglycerin/Dextrose 25 mg in 250 mls @ 3 mls/hr 10/29/21 13:45 10/29/21 14:01 Nitroglycerin 25 Mg/D5w 250 Ml IV 3 mls/hr TITRATE ZANE 3 mls/hr Administration Protocol Sodium Chloride 10 ml 10/29/21 13:38 10/29/21 14:01 Sodium Chloride 0.9% 10 Ml Syringe FLUSH 10 ml ASDIRECTED PRN Administration Keep Vein Open Discontinued Medications Generic Name Dose Route Start Last Admin Trade Name Freq PRN Reason Stop Dose Admin Aspirin 324 mg 10/29/21 13:38 10/29/21 14:00 Aspirin 81 Mg Tab.Chew PO 10/29/21 13:39 324 mg ONETIME ONE Administration - Re-Assessments/Exams Free Text/Narrative Re-Assessment/Exam: 10/29/21 16:24 I ordered an IV saline lock, aspirin, nitro drip, EKG, CXR and labs. Her EKG shows a LBBB with no changes from prior. Her CBC looks good. Her PT and PTT look good. Her creatinine is 1.2 Her AST is 58. Her ALT was 180. Her troponin is negative. Her BNP is 2830. This is improved from yesterday. She feels better. 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 He wanted me to get another troponin and I can discharge her. She was okay with the plan. She wanted some xanax for at home to help with an anxiety. Departure - Departure Time of Disposition: 16:30 Disposition: Home, Self-Care 01 Condition: Good Clinical Impression: Atypical chest pain, Heart murmur CHF (congestive heart failure) Qualifiers: Heart failure type: unspecified Heart failure chronicity: acute Qualified Code(s): I50.9 - Heart failure, unspecified Prescriptions: ALPRAZolam [Xanax] 0.25 mg PO QID PRN #10 tablet PRN Reason: Anxiety Referrals: Tena Gonzalez MD [Primary Care Provider] - Additional Instructions: Keep taking the lasix daily. Take the xanax every 8 hours as needed for anxiety. Follow up with Dr Peralta. Please return if you are worse. Sepsis Event Note (ED) - Focused Exam Vital Signs: Vital Signs Pulse Ox 10/29/21 13:43 97 - My Orders Last 24 Hours: My Active Orders 10/29/21 13:38 Cardiac Monitoring [RC] . DIRECTED Sodium Chloride 0.9% [Saline Flush] 10 ml FLUSH ASDIRECTED PRN Peripheral IV Insertion Adult [OM.PC] Stat 10/29/21 13:39 Oxygen Therapy [RC] PRN Peripheral IV Care [RC] . DIRECTED 10/29/21 13:45 Nitroglycerin/D5W [Nitroglycerin 25 MG/D5W 250 ML] 25 mg in 250 ml IV TITRATE 10/29/21 16:00 TROPONIN I [CHEM] Stat - Assessment/Plan Last 24 Hours: My Active Orders 10/29/21 13:38 Cardiac Monitoring [RC] . DIRECTED Sodium Chloride 0.9% [Saline Flush] 10 ml FLUSH ASDIRECTED PRN Peripheral IV Insertion Adult [OM.PC] Stat 10/29/21 13:39 Oxygen Therapy [RC] PRN Peripheral IV Care [RC] . DIRECTED 10/29/21 13:45 Nitroglycerin/D5W [Nitroglycerin 25 MG/D5W 250 ML] 25 mg in 250 ml IV TITRATE 10/29/21 16:00 TROPONIN I [CHEM] Stat
[2021-10-29] MEDS ORDERED: ALPRAZolam 0.25 MG Tab PO ONE (16:27)
== END 2021-10-29 16:50 | disposition home or self-care (01) ==
LOC: JD.ED 13:23
DX: I50.9 Heart failure, unspecified (principal); R01.1 Cardiac murmur, unspecified; I44.7 Left bundle-branch block, unspecified; R00.0 Tachycardia, unspecified; J45.909 Unspecified asthma, uncomplicated; Z72.0 Tobacco use; Z88.8 Allergy status to other drugs, medicaments and biological substances; Z20.822 Contact with and (suspected) exposure to COVID-19
CPT/HCPCS: 36415; 71045; 80053; 83880; 84484; 85025; 85610; 85730; 87635; 93005; 94762; 96365; 96366; 99285; A9270; J3490; U0002

== ENCOUNTER 2021-11-06 13:06 | Emergency (ER) | payer BC ==
[2021-11-06] MEDS ORDERED: Sodium Chloride 0.9% 10 ML Syringe FLUSH PRN (13:10)
--- NOTE | 2021-11-06 13:47 | CR ---
Chest: Portable view of the chest was obtained. Comparison: Prior chest x-ray on 10/29/21. Heart is enlarged. Lungs are clear. No acute pulmonary vascular congestion is seen. Bony structures show nothing acute. Impression: 1. Cardiomegaly. 2. Nothing acute is otherwise seen on portable chest x-ray. Diagnostic code #2
--- NOTE | 2021-11-06 15:32 | EDM.PDOC ---
ED HPI GENERAL MEDICAL PROBLEM - General Chief Complaint: Cardiovascular Problem Stated Complaint: SOB CHEST PAIN Time Seen by Provider: 11/06/21 14:26 Source of Information: Reports: Patient, Family () History Limitations: Reports: No Limitations - History of Present Illness INITIAL COMMENTS - FREE TEXT/NARRATIVE: Mrs. Koenig is a most pleasant 61-year-old woman who, medical records indicate, was sent to this ED from the [facility] walk-in clinic on 10/28/2021 with a complaint at that time of dyspnea and chest pressure for 2 weeks. It had begun while she was in [place]. Work-up at the walk-in clinic had included labs, chest x-ray, and an ECG, which demonstrated sinus tachycardia and a left bundle branch block. Her chest x-ray demonstrated cardiomegaly with some pulmonary vascular congestion. She was found to be hemodynamically stable, afebrile, saturating 99% on room air. Work-up included a D-dimer, troponin, pro-BNP, TSH, a swab for the SARS-CoV-2 virus, a CT angiogram of the chest, and an ECG. Her pro-BNP was found to be modestly elevated at 3315, while the CT angiogram demonstrated mild cardiomegaly with left ventricular enlargement and pulmonary edema. The ED Physician spoke to a Survival Equipment Repairer, who recommended starting the patient on furosemide and ordering an outpatient echocardiogram. The patient then returned to this ED the following day, 10/29/2021 complaining of chest pain, tachycardia, some nausea, anxiety, and dyspnea that had started just half an hour prior to arrival. She had just taken her first furosemide that morning. Work-up included a CBC, CMP, troponin, pro-BNP, coags, a chest x-ray, and an ECG. Her ECG again demonstrated a left bundle branch block, and her BNP was down to 2830. The ED Physician again spoke to the Survival Equipment Repairer, and she was discharged home with a prescription for alprazolam. Since then, the patient states that she underwent an echocardiogram on 11/01/2021, then followed up with her Survival Equipment Repairer on , 11/02/2021. He prescribed for her Coreg and Entresto, in addition to the aspirin, furosemide, and alprazolam that had already been prescribed/ordered. The patient then followed up with her PCP on Saturday, and arrangements have been made for the patient to undergo a coronary angiogram 1 week from today, 11/13/2021. The patient now returns to the ED stating that she developed dyspnea around 13:00 this afternoon while standing and doing dishes. She acknowledges that her symptoms may very well be due to anxiety, as they resolved after she took an alprazolam. Here in the ED today, the patient's initial BP was found to be slightly elevated at 142/97, otherwise, she is hemodynamically stable, afebrile, saturating 97% on room air. She appears to be relatively comfortable, in no acute distress. The patient denies having a recent fever, chills, sore throat, ear pain, nasal or sinus congestion, cough, palpitations, vomiting, constipation, diarrhea, abdominal pain, urinary symptoms, recent weight gain or weight loss, recent bloody bowel movements or black bowel movements, recent joint aches, headaches, or rashes. The patient's PCP is Dr. Tena Peralta. Her Survival Equipment Repairer is Dr. Spencer Corbett. She received a single [employer] COVID vaccination in July, but has not received an influenza vaccination this season. - Related Data Allergies Allergy/AdvReac Type Severity Reaction Status Date / Time phenytoin sodium Allergy Rash Verified 10/29/21 13:39 [From Dilantin] phenytoin sodium extended Allergy Rash Verified 10/29/21 13:39 [From Dilantin] Home Meds: Home Meds Albuterol [Proventil Neb Soln] 1 dose INH ASDIRECTED PRN 10/28/21 [History] ALPRAZolam [Xanax] 0.25 mg PO QID PRN #10 tab 10/30/21 [Rx] Aspirin [Aspirin EC] 81 mg PO DAILY 11/06/21 [History] Furosemide [Lasix] 40 mg PO DAILY 11/06/21 [History] Sacubitril/Valsartan [Entresto 24 mg-26 mg Tablet] 1 tab PO BID 11/06/21 [History] carvediloL [Coreg] 3.125 mg PO BID 11/06/21 [History] Past Medical History HEENT History: Reports: Impaired Vision Cardiovascular History: Reports: Heart Failure Respiratory History: Reports: Asthma Neurological History: Reports: Seizure Psychiatric History: Reports: Anxiety - Past Surgical History Head Surgeries/Procedures: Reports: Craniotomy (Meningioma excised 1988) Social & Family History - Tobacco Use Tobacco Use Status *Q: Never Tobacco User Second Hand Smoke Exposure: No - Caffeine Use Caffeine Use: Reports: Coffee - Alcohol Use Alcohol Use History: Yes Alcohol Use Frequency: Socially - Recreational Drug Use Recreational Drug Use: Yes Drug Use in Last 12 Months: Yes Recreational Drug Type: Reports: Marijuana/Hashish (smokes about once a month) - Living Situation & Occupation Living situation: Reports: , with Spouse 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 ED EXAM, GENERAL - Physical Exam Exam: See Below Exam Limited By: No Limitations General Appearance: Alert, WD/WN, No Apparent Distress Eye Exam: Bilateral Eye: EOMI, Normal Inspection Ears: Normal External Exam, Hearing Grossly Normal Nose: Normal Inspection Throat/Mouth: Normal Inspection, Normal Lips, Normal Voice, No Airway Compromise Head: Atraumatic, Normocephalic Neck: Normal Inspection, Full Range of Motion Respiratory/Chest: No Respiratory Distress, Lungs Clear, Normal Breath Sounds, No Accessory Muscle Use Cardiovascular: Normal Peripheral Pulses, Regular Rate, Rhythm, No Edema, No Gallop, No JVD, No Murmur, No Rub Peripheral Pulses: 3+: Radial (L), Radial (R) GI/Abdominal: Normal Bowel Sounds, Soft, Non-Tender, No Organomegaly, No Distention, No Abnormal Bruit, No Mass Back Exam: Normal Inspection, Full Range of Motion, NT Extremities: Normal Inspection, Normal Range of Motion, No Pedal Edema, Normal Capillary Refill Neurological: Alert, Oriented, Normal Cognition, No Motor/Sensory Deficits Psychiatric: Normal Affect Skin Exam: Warm, Dry, Intact, Normal Color, No Rash #1 Interpretation EKG Date: 11/06/21 Time: 13:22 Rhythm: NSR Rate (Beats/Min): 97 [place]: LAD-Left [place] Deviation P-Wave: Enlarged (DANISH. ? LAE.) QRS: LBBB QT: Prolonged (QTc 534 ms) Comparison: No Change (10/29/2021) Course - Vital Signs Last Recorded V/S: Last Vital Signs Temp 36.3 C 11/06/21 13:28 Pulse 86 11/06/21 16:42 Resp 16 11/06/21 16:42 BP 114/82 11/06/21 16:42 Pulse Ox 97 11/06/21 16:42 - Orders/Labs/Meds Orders: Active Orders 24 hr Category Date Time Status Peripheral IV Insertion Adult [OM.PC] Stat Oth 11/06/21 13:11 Ordered Labs: Laboratory Tests 11/06/21 11/06/21 11/06/21 Range/Units 13:25 13:25 13:25 WBC 7.45 (3.98-10.04) K/mm3 RBC 5.14 (3.98-5.22) M/mm3 Hgb 16.4 H D (11.2-15.7) gm/dl Hct 50.1 H (34.1-44.9) % MCV 97.5 H (79.4-94.8) fl MCH 31.9 (25.6-32.2) pg MCHC 32.7 (32.2-35.5) g/dl RDW Std Deviation 44.7 (36.4-46.3) fL Plt Count 339 (182-369) K/mm3 MPV 9.7 (9.4-12.3) fl Neut % (Auto) 58.0 (34.0-71.1) % Lymph % (Auto) 25.9 (19.3-51.7) % [place] % (Auto) 9.0 (4.7-12.5) % Eos % (Auto) 6.2 H (0.7-5.8) Baso % (Auto) 0.8 (0.1-1.2) % Neut # (Auto) 4.32 (1.56-6.13) K/mm3 Lymph # (Auto) 1.93 (1.18-3.74) K/mm3 [place] # (Auto) 0.67 H (0.24-0.36) K/mm3 Eos # (Auto) 0.46 H (0.04-0.36) K/mm3 Baso # (Auto) 0.06 (0.01-0.08) K/mm3 PT 10.9 (9.7-12.0) SECONDS INR 0.98 D-Dimer, Quantitative 0.88 H (0.19-0.50) mg/L Sodium 139 (136-145) mEq/L Potassium 4.3 (3.5-5.1) mEq/L Chloride 100 (98-107) mEq/L Carbon Dioxide 28 (21-32) mEq/L Anion Gap 15.3 H (5-15) BUN 16 (7-18) mg/dL Creatinine 1.1 H (0.55-1.02) mg/dL Est Cr Clr Drug Dosing TNP Estimated GFR (MDRD) 51 (>60) mL/min BUN/Creatinine Ratio 14.5 (14-18) Glucose 118 H (70-99) mg/dL Calcium 10.1 (8.5-10.1) mg/dL Magnesium 2.2 (1.8-2.4) mg/dL Total Bilirubin 0.6 (0.2-1.0) mg/dL AST 40 H (15-37) U/L ALT 88 H (14-59) U/L Alkaline Phosphatase 89 (46-116) U/L Troponin I < 0.017 (0.00-0.056) ng/mL NT-Pro-B Natriuret Pep (0-125) pg/mL Total Protein 9.0 H (6.4-8.2) g/dl Albumin 4.8 (3.4-5.0) g/dl Globulin 4.2 gm/dL Albumin/Globulin Ratio 1.1 (1-2) 11/06/21 Range/Units 13:25 WBC (3.98-10.04) K/mm3 RBC (3.98-5.22) M/mm3 Hgb (11.2-15.7) gm/dl Hct (34.1-44.9) % MCV (79.4-94.8) fl MCH (25.6-32.2) pg MCHC (32.2-35.5) g/dl RDW Std Deviation (36.4-46.3) fL Plt Count (182-369) K/mm3 MPV (9.4-12.3) fl Neut % (Auto) (34.0-71.1) % Lymph % (Auto) (19.3-51.7) % [place] % (Auto) (4.7-12.5) % Eos % (Auto) (0.7-5.8) Baso % (Auto) (0.1-1.2) % Neut # (Auto) (1.56-6.13) K/mm3 Lymph # (Auto) (1.18-3.74) K/mm3 [place] # (Auto) (0.24-0.36) K/mm3 Eos # (Auto) (0.04-0.36) K/mm3 Baso # (Auto) (0.01-0.08) K/mm3 PT (9.7-12.0) SECONDS INR D-Dimer, Quantitative (0.19-0.50) mg/L Sodium (136-145) mEq/L Potassium (3.5-5.1) mEq/L Chloride (98-107) mEq/L Carbon Dioxide (21-32) mEq/L Anion [place] (5-15) BUN (7-18) mg/dL Creatinine (0.55-1.02) mg/dL Est Cr Clr Drug Dosing Estimated GFR (MDRD) (>60) mL/min BUN/Creatinine Ratio (14-18) Glucose (70-99) mg/dL Calcium (8.5-10.1) mg/dL Magnesium (1.8-2.4) mg/dL Total Bilirubin (0.2-1.0) mg/dL AST (15-37) U/L ALT (14-59) U/L Alkaline Phosphatase (46-116) U/L Troponin I (0.00-0.056) ng/mL NT-Pro-B Natriuret Pep 871 H (0-125) pg/mL Total Protein (6.4-8.2) g/dl Albumin (3.4-5.0) g/dl Globulin gm/dL Albumin/Globulin Ratio (1-2) Meds: Medications Discontinued Medications Generic Name Dose Route Start Last Admin Trade Name Freq PRN Reason Stop Dose Admin Sodium Chloride 10 ml 11/06/21 13:10 11/06/21 13:53 Sodium Chloride 0.9% 10 Ml Syringe FLUSH 10 ml ASDIRECTED PRN Administration Keep Vein Open - Re-Assessments/Exams Free Text/Narrative Re-Assessment/Exam: 11/06/21 15:29 Numerous blood tests, a portable chest x-ray, and an ECG were ordered at triage. The patient's ECG demonstrates a normal sinus rhythm with a left bundle branch block and LAD. Her QTc is prolonged at 534 ms. There are no ischemic changes, and her ECG appears to be grossly unchanged from 10/29/2021. Portable chest x-ray is read by Dr. Dela Cruz as: 1. Cardiomegaly. 2. Nothing acute is otherwise seen on portable chest x-ray. The patient's CBC is remarkable for an H/H mildly elevated at 16.4/50.1, with the remainder of her CBC being unremarkable. Her CMP is remarkable for slight hyperglycemia of 118, and an AST/ALT slightly elevated at 40/88, respectively, with the remainder of her CMP being unremarkable. Her magnesium level is within normal limits at 2.2. Her troponin is undetectably low. Her pro-BNP is mildly elevated at 871. Her D-dimer is slightly elevated at 0.88. Her PT/INR within normal limits. Reviewing prior labs, I see that the patient's pro-BNP was 3315 on 10/28/2021, and 2836 on 10/29/2021. 11/06/21 16:09 Test results discussed with the patient and her . As above, today's work-up is grossly unremarkable. 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 I have not had access to the results of her echocardiogram, however, and she is due to undergo a coronary angiogram 1 week from today, so we will see. The patient suspects that anxiety may be playing a significant role in her symptoms, and I agree. I recommended that she continue to take her current medications as prescribed. I explained that carvedilol, in particular, can cause significant symptoms, especially initially, but that she should stick with it. She should start to feel better in a couple of weeks. Departure - Departure Time of Disposition: 16:17 Disposition: Home, Self-Care 01 Condition: Good Clinical Impression: Dyspnea Instructions: Shortness of Breath, Adult, [id number] Referrals: Tena Gonzalez MD [Primary Care Provider] - Spencer Corbett MD [Ordering Only Provider] - Forms: ED Department Discharge Additional Instructions: You were seen in the emergency room after developing shortness of breath this a fternoon while doing dishes. Work-up in the ER included numerous blood tests, a chest x-ray, and an ECG. Your entire work-up was unremarkable. Your pro-BNP, a measure of the stretch of your heart, is down to 871, up from 3313 on 10/28/2021. Your chest x-ray shows an enlarged heart, but no pulmonary vascular congestion. Based on your history, physical exam, and ER tests, your shortness of breath was most likely due to anxiety, as it does not appear to be due to decompensated congestive heart failure. As discussed, some of your medications, particularly carvedilol (Coreg) can cause significant fatigue and other symptoms, especially initially. It is important that you continue to take your currently prescribed medications as prescribed. You will likely start to feel much better within a couple of weeks. We recommend that you undergo your previously scheduled coronary angiogram next 11/13/2021. If any other problems, please do not hesitate to return to the ER. Sepsis Event Note (ED) - Evaluation Sepsis Screening Result: No Definite Risk - Focused Exam Vital Signs: Vital Signs Temp Pulse Resp BP Pulse Ox 11/06/21 16:42 86 16 114/82 97 11/06/21 14:45 93 16 100/63 98 11/06/21 13:28 36.3 C 95 16 142/97 H 97 - My Orders Last 24 Hours: My Active Orders 11/06/21 13:11 Peripheral IV Insertion Adult [OM.PC] Stat - Assessment/Plan Last 24 Hours: My Active Orders 11/06/21 13:11 Peripheral IV Insertion Adult [OM.PC] Stat
== END 2021-11-06 16:42 | disposition home or self-care (01) ==
LOC: JD.ED 13:06
DX: R06.02 Shortness of breath (principal); J45.909 Unspecified asthma, uncomplicated; I50.9 Heart failure, unspecified; Z88.8 Allergy status to other drugs, medicaments and biological substances; Z79.82 Long term (current) use of aspirin; Z79.899 Other long term (current) drug therapy
CPT/HCPCS: 36415; 71045; 71045-26; 80053; 83735; 83880; 84484; 85025; 85379; 85610; 93005; 99285-25

== ENCOUNTER 2022-06-16 14:31 | Emergency (ER) | payer BC ==
[2022-06-16] MEDS ORDERED: Sodium Chloride 0.9% 10 ML Syringe FLUSH PRN (14:49)
[2022-06-16] MEDS ORDERED: Iopamidol 755 Mg/ML 100 ML Bottle IVPUSH ONE (15:08)
[2022-06-16] MEDS ORDERED: Sodium Chloride 0.9% 10 ML Syringe FLUSH ONE (15:08)
[2022-06-16] MEDS ORDERED: Sodium Chloride 0.9% 100 ML IV SCH (15:15)
[2022-06-16 16:55] LABS: ESTIMATED GFR 84 mL/min (>60)
[2022-06-16] MEDS ORDERED: Furosemide 40 MG/4 ML VIAL IVPUSH ONE (17:28)
== END 2022-06-16 18:58 | disposition home or self-care (01) ==
LOC: JD.ED 14:31
DX: I50.9 Heart failure, unspecified (principal); J90 Pleural effusion, not elsewhere classified; D64.89 Other specified anemias; J45.909 Unspecified asthma, uncomplicated; Z88.8 Allergy status to other drugs, medicaments and biological substances; Z79.899 Other long term (current) drug therapy; Z79.82 Long term (current) use of aspirin
CPT/HCPCS: 36415; 71275; 80053; 84484; 85025; 93005; 96361; 96374; 99285; J1940; J3490; Q9967; 93010; 99284